=== PATIENT | female | born 1995 | race Caucasian/White ===

== ENCOUNTER → 2018-02-27 15:58 | Observation (INO) ==
[2018-02-27 13:19] LABS: Amphetamine Screen,Urine Negative ng/mL (Cutoff=1000); Barbiturate Screen,Urine Negative ng/mL (Cutoff=200); Benzodiazepines Screen,Urine Negative ng/mL (Cutoff=200); Cannabinoid Screen,Urine Negative ng/mL (Cutoff = 50); Cocaine Screen,Urine Negative ng/mL (Cutoff= 300); Opiate Screen,Urine Negative ng/mL (Cutoff=300); Phencyclidine Screen,Urine Negative ng/mL (Cutoff=25)
--- NOTE | 2018-02-27 15:50 | Discharge Summary ---
Date of Encounter: 02/27/18 Time of Encounter: 15:47 - Discharge Diagnosis (1) 37 weeks gestation of Priority: Primary Status: Acute Comments: Follow up with Dr. Parker by Friday. Labor parameters given Discharge home (2) NST (non-stress test) reactive on surveillance Priority: Secondary Status: Acute - Discharge Medications Home Medications: Ferrous Sulfate [Iron Supplement] 325 mg PO DAILY 10/26/15 [History] Multivitamin [Flintstones] 1 tab PO DAILY 02/27/18 [History] Allergies/Adverse Reactions: 3 Allergy/AdvReac Type Severity Reaction Status Date / Time No Known Allergies Allergy Verified 02/27/18 12:34 Data Procedures and tests throughout hospitalization: Laboratory Tests 02/27/18 12:28 Urine Opiates Screen Negative Ur Barbiturates Screen Negative Ur Phencyclidine Scrn Negative Ur Amphetamines Screen Negative U Benzodiazepines Scrn Negative Urine Cocaine Screen Negative U Marijuana (THC) Screen Negative Ur Drug Screen Interp See Below Labs on day of discharge: Labs from last 24 hours 02/27/18 12:28 Urine Opiates Screen Negative Ur Barbiturates Screen Negative Ur Phencyclidine Scrn Negative Ur Amphetamines Screen Negative U Benzodiazepines Scrn Negative Urine Cocaine Screen Negative U Marijuana (THC) Screen Negative Ur Drug Screen Interp See Below Date of admission: 02/27/18 12:10 Primary care physician: Isaak Cedillo Discharging clinician: Karen Mack Anticipated date of discharge: 02/27/18 - Patient Status Disposition: Home, Self-Care Condition: Good Functional capacity at discharge: independent ambulation Overall status at discharge: patient is progressing back to baseline - Discharge Instructions Follow Up With: Isaak Cedillo MD [Primary Care Provider] - Ronni Parker MD [Partnered Physician] - - Diet and Activity Activity: increase activity as tolerated Diet: regular diet 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 Michael was sent from Dr. Parker's office for NST with many variables. She endorses good fm and denies lof, vb, ctx. Extended monitoring is reassuring and strip was reviewed with Dr. Doran. Instructed patient to follow up with Dr. Parker early next week. Time Attestation: Total time spent providing and/or coordinating discharge services: Time Spent: Less than 30 minutes Exam - Constitutional General appearance IM: A&O X 3, morbidly obese, pleasant, no acute distress, answers questions appropriately - Respiratory Respiratory exam: Present: CTAB - Cardiovascular Cardiovascular exam IM: Present: RRR, +S1, +S2 - GI/Abdominal GI/Abdominal exam IM: normal bowel sounds, no peritoneal signs - Rectal Rectal exam: deferred - Uterine Tone: Firm - Extremities Exam Extremities exam IM: Present: normal capillary refill, normal inspection, radial pulses palpable and symmetrical - Neurological Exam Neurological exam: alert, CN II-XII intact, normal gait, oriented X3, reflexes normal, no focal deficits, strengths equal and symetr throughout - VTE Reasons for not Prescribing Prophylaxis: Treatment not Indicated - Low risk for VTE
== END | disposition home or self-care (01) ==
LOC: 1NENULAB
PROVIDERS: ADMIT Advanced Practice Midwife; ATTEND Advanced Practice Midwife

== ENCOUNTER 2018-03-13 06:13 | Inpatient (IN) ==
[2018-03-13] MEDS ORDERED: Naloxone 0.4 MG/ML INJ IVP PRN (06:18)
[2018-03-13] MEDS ORDERED: Famotidine 20 MG/2 ML VIAL IVP PRN (06:18)
[2018-03-13] MEDS ORDERED: Metoclopramide 10 MG/2 ML VIAL IVP PRN ×2 (06:18→09:46)
[2018-03-13] MEDS ORDERED: Ringers Solution, Lactated 1,000 ML IVC SCH ×2 (06:30→12:30)
[2018-03-13] MEDS ORDERED: CeFAZolin Syr 2,000MG/20 ML 2,000 MG/20 ML SYRINGE IVPB ONE (07:00)
[2018-03-13] MEDS ORDERED: Oxytocin 20 units/ LR 1000 mL 20 UNIT/1,000 ML BAG IVC ONE (07:00)
[2018-03-13] MEDS ORDERED: Ringers Solution, Lactated 1,000 ML IVC ONE (07:00)
[2018-03-13] MEDS ORDERED: Oxytocin 20 units/ LR 1000 mL 20 UNIT/1,000 ML BAG IVC SCH ×3 (07:00→12:30)
[2018-03-13 07:10] LABS: Basophils % 0.2 %; Eosinophils # 0.1 K/mcL (0.0-0.6); Hematocrit 34.4 % (35.3-44.9); Hemoglobin 11.3 g/dL (11.5-15.4); Immature Granulocytes % 0.8 % (0-4); Immature Platelets 7.3 % (1.1-6.1); Lymphocytes # 2.5 K/mcL (0.6-4.6); Lymphocytes % 27.3 %; Mean Corpuscular HGB Conc 32.8 g/dL (31.6-35.5); Mean Corpuscular Hemoglobin 27.7 pg (28.0-33.3); Mean Corpuscular Volume 84.3 fL (83.0-100.0); Mean Platelet Volume 11.2 fL (9.4-12.4); Monocytes # 0.7 K/mcL (0.0-1.3); Monocytes % 8.1 %; Neutrophils # 5.7 K/mcL (1.6-8.9); Platelet Count 170 K/mcL (140-400); Red Blood Count 4.08 M/mcL (3.82-4.97); Red Cell Distribution Width 13.6 % (11.5-14.5); Segmented Neutrophils % 62.6 %
[2018-03-13 07:23] LABS: Amphetamine Screen,Urine Negative ng/mL (Cutoff=1000); Barbiturate Screen,Urine Negative ng/mL (Cutoff=200); Benzodiazepines Screen,Urine Negative ng/mL (Cutoff=200); Cannabinoid Screen,Urine Negative ng/mL (Cutoff = 50); Cocaine Screen,Urine Negative ng/mL (Cutoff= 300); Opiate Screen,Urine Negative ng/mL (Cutoff=300); Phencyclidine Screen,Urine Negative ng/mL (Cutoff=25)
--- NOTE | 2018-03-13 07:24 | Anesthesia Evaluation PreOp ---
Date of Encounter: 03/13/18 Time of Encounter: 07:30 - Past History Planned Operation: Repeat Cardiac History: Denies any Significant Hx Pulmonary History: Denies Any Significant HX PLANNING OFFICIAL History: Denies Any Significant HX Other Medical History: Diabetes Type II (Gestational), Other (Obese) Anesthesia History: No Prior Anesthetic Complications : Yes (39 weeks) Alcohol Use: none Drug use: none Medications and Allergies Multivitamin [Flintstones] 1 tab PO DAILY 02/27/18 [History] 3 Allergy/AdvReac Type Severity Reaction Status Date / Time No Known Allergies Allergy Verified 02/27/18 12:34 - Meds/Allergy Pre-op Review Medications Reviewed: Yes Allergies Reviewed: Yes Beta Blockers on Current Med List: No Anesthesia Results - Labs 03/13/18 06:42 Laboratory Tests 03/03/16 03/13/18 21:54 06:42 Hgb 11.3 L Hct 34.4 L Plt Count 170 Sodium 138 Potassium 3.7 BUN 7 Creatinine 0.73 Anesthesia Exam O2 Sat Height 1.68 m Weight 113.852 kg Height: 5'6 Weight: 251lbs NPO (# of Hours): MN Pain Scale: 0 - HEENT Pupil (Motor): Pupils equal, EOMI Mallampati: II Teeth: Normal Oral Opening: Greater than 3 - PLANNING OFFICIAL LOC: Oriented PLANNING OFFICIAL Motor: Normal RUE, Normal LUE, Normal RLE, Normal LLE, Normal Face PLANNING OFFICIAL Sensory: Normal: RUE, LUE, RLE, LLE, Face - Cardiac Rhythm: Regular Murmur: None JVD: No Carotid Bruit: No - Pulmonary Breath Sounds: bilateral Clear Respiratory Effort: Symmetrical Anesthesia Assess/Plan ASA Score: 3 (Obese DM Gestational) Modified Jojo Scale for Level of Consciousness: Cooperative, oriented, and tranquil Anesthetic Plan: Regional Monitoring Plan: Standard Monitors Recovery Plan: PACU (Discussed SAB, possible GA, agrees to proceed)
[2018-03-13] MEDS ORDERED: Ringers Solution, Lactated 1,000 ML ONE ×2 (07:25→08:21)
[2018-03-13] MEDS ORDERED: *HR* Oxytocin 10 UNIT/ML VIAL IM ONE (07:25)
[2018-03-13] MEDS ORDERED: *HR* Morphine Sulfate/PF 10 MG/10 ML AMPUL ONE (07:26)
[2018-03-13] MEDS ORDERED: EPHEDrine 50 MG/ML VIAL ONE (07:26)
[2018-03-13] MEDS ORDERED: *HR* FentaNYL (PF) 100 MCG/2 ML VIAL ONE (07:26)
[2018-03-13] MEDS ORDERED: Lidocaine -MPF 2% 5 ML VIAL ONE (07:27)
--- NOTE | 2018-03-13 07:29 | OB/GYN History & Physical ---
Date of Encounter: 03/13/18 Time of Encounter: 07:27 Assessment and Plan (1) 39 weeks gestation of Current visit: Yes Status: Chronic (2) Gestational diabetes mellitus (GDM) affecting Current visit: Yes Status: Chronic (3) Delivered by section Current visit: No Status: Chronic History of Present Illness HPI: Ms. Michael is a 23 year old female Patient is a 23-year-old 2 para 1 white female at 39 weeks admitted for repeat section and tubal. She has had gestational diabetes which is been followed in our office with weekly nonstress test. She denies spontaneous rupture membranes, vaginal bleeding, and reports active fetus. Past Med Surg Social Fam HX - Past Medical History Medical history: no medical history Psychiatric history: anxiety, depression - Past Surgical History Surgical History: Additional surgical history: tonsilectomy - Social History Smoking Status: Former smoker Smokeless Tobacco Status: No Alcohol use: none Drug use: none - Family History Mother Adopted: Violet: Jillian Sow Family Member Ethnicity: Non- Living Status: Age at : 47 Cause of : colon cancer Hx Family Cardiac Disorders: Yes (hypertension) Hx Family Respiratory Disorders: No Hx Family Cancer: Yes (colon cancer) Hx Family GI Disorders: Yes (unsure) Hx Family Genitourinary Disorders: No Hx Family Endocrine Disorder: Yes (diabetes type II) Hx Family Musculoskeletal Disorders: No Hx Family Neuromuscular Disorders: No Hx Family Neurologic Disorders: No Hx Family HEENT Disorders: No Hx Family Autoimmune Disorders: No Hx Family Reproductive Disorders: No Hx Family Psychosocial Disorders: No Hx Family Medical Disorders: Yes (depression, anxiety) Obstetrical History - Pregnancies : 2 Para: 1 Medications and Allergies Multivitamin [Flintstones] 1 tab PO DAILY 02/27/18 [History] 3 Allergy/AdvReac Type Severity Reaction Status Date / Time No Known Allergies Allergy Verified 02/27/18 12:34 Review of System OB All systems PM: reviewed and no additional remarkable complaints except as stated - Genitourinary Genitourinary: amenorrhea - Menstruation Menstruation: amenorrhea Exam - Constitutional Constitutional: well developed, well nourished, no acute distress, obese - HEENT HEENT: Normocephaly - Neck Neck exam: full ROM - Lungs Respiratory exam: CTAB - Cardiovascular Cardiovascular exam: RRR - Abdomen Abdomen: Present: gravid, non tender - Extremities Extremities exam: full ROM Deep Tendon Reflex Grade: 2+ Normal - Uterus Uterus exam: Present: enlarged Results Result Diagrams: 03/13/18 06:42 Abnormal lab results Hgb 11.3 g/dL (11.5-15.4) L 03/13/18 06:42 Hct 34.4 % (35.3-44.9) L 03/13/18 06:42 MCH 27.7 pg (28.0-33.3) L 03/13/18 06:42 Immature Plt Fraction 7.3 % (1.1-6.1) H 03/13/18 06:42 All other labs normal. - VTE Reasons for not Prescribing Prophylaxis: Treatment not Indicated - Low risk for VTE - Attending Attestation hanane west md facog
[2018-03-13] MEDS ORDERED: CeFAZolin Premix DUPLEX 2,000 MG/50 ML BAG IVPB ONE (08:00)
[2018-03-13] MEDS ORDERED: Ondansetron 4 MG/2 ML VIAL IVP ONE (08:32)
[2018-03-13] MEDS ORDERED: Acetaminophen IV 1,000 MG/100 ML INFUS..BTL IVPB ONE (08:32)
[2018-03-13] MEDS ORDERED: *HR* Promethazine 25 MG/ML VIAL IVP PRN (08:32)
[2018-03-13] MEDS ORDERED: *HR* HYDROmorphone (PF) 1 MG/ML SYRINGE IVP PRN ×2 (08:32→13:08)
--- NOTE | 2018-03-13 09:35 | OB/GYN Procedure Note ---
Section - Preop diagnosis: desires repeat , desires sterilization Post-op diagnosis: same Procedure: repeat low transverse, bilateral tubal ligation Surgeon: Ronni Foley Blood Loss: 500 Was there an advertising sales assistant present: Yes Gemologist: Freda Richard Anesthesiologist: Edgardo Adame Anesthesia Type: Spinal section complications: none Disposition: PACU Specimens: Placenta, Right tube segment, Left tube segment - (s) A Infant Delivery Date: 03/13/18 Infant Delivery Time: : Presentation: vertex Position: ARABELLA Gender: Male Viability: Viable Pounds: 9 Ounces: 7 at 1 minute: 9 at 5 minutes: 9 Specimens collected: cord blood Placenta: complete extraction Cord: true knot - Narrative Narrative: Patient was taken to the operating room. After satisfactory spinal anesthesia was achieved patient placed in supine position Ann catheter inserted and prepped and draped in usual manner. After appropriate timeout, abdomen was entered through standard Maylard incision. The Teresa retractor was placed. The peritoneum overlying the lower uterine segment was incised in the U-shaped fashion. Uterine cavity was entered sharply extended laterally. Membranes ruptured yielding clear fluid consistent with polyhydramnios. The head was delivered, shoulders and torso delivered, umbilical cord double clamped and cut and the infant was handed to nursery staff for further evaluation. Placenta was removed and sent to pathology for analysis with a true knot noted. Uterus closed with 0 Monocryl in a single layer. Attention turned to fallopian tubes. Distal ends of fallopian tubes were resected and sent to pathology for analysis. Pedicles were ligated with a 2-0 chromic. After assurance hemostasis , uterus placed back within the abdominal cavity. Retractor was removed. Fascia closed with 0 PDS. Skin was closed with 3-0 Monocryl. Sterile dressing was applied. Patient did well was taken to recovery in satisfactory condition. Counts were correct.
[2018-03-13] MEDS ORDERED: Acetaminophen 325 MG TABLET PO PRN ×2 (09:46→12:16)
[2018-03-13] MEDS ORDERED: Simethicone 80 MG TAB.CHEW PO PRN ×2 (09:46→12:21)
[2018-03-13] MEDS ORDERED: Ibuprofen 600 MG TABLET PO PRN (09:46)
[2018-03-13] MEDS ORDERED: *HR* OxyCODONE/APAP 5/325 TABLET PO PRN ×2 (09:46→12:20)
[2018-03-13] MEDS ORDERED: Ondansetron 4 MG/2 ML VIAL IVP PRN ×2 (09:46→12:19)
[2018-03-13] MEDS ORDERED: Sennosides 8.6 MG TABLET PO PRN ×2 (09:46→12:16)
[2018-03-13] MEDS ORDERED: Rho Immune Globulin 1,500 UNIT SYRINGE IM ONE (09:46)
[2018-03-13] MEDS ORDERED: Rho Immune Globulin 1,500 UNIT SYRINGE IM PRN (12:16)
[2018-03-13] MEDS: *HR* Nalbuphine 10 MG/ML AMPUL IV PRN ×2 (13:15→21:31)
[2018-03-13] MEDS: Ibuprofen 600 MG TABLET PO PRN (22:12)
[2018-03-14] MEDS: *HR* Nalbuphine 10 MG/ML AMPUL IV PRN (00:44)
[2018-03-14 07:24] LABS: Hematocrit 35.5 % (35.3-44.9); Hemoglobin 11.5 g/dL (11.5-15.4); Mean Corpuscular HGB Conc 32.4 g/dL (31.6-35.5); Mean Corpuscular Hemoglobin 27.7 pg (28.0-33.3); Mean Corpuscular Volume 85.5 fL (83.0-100.0); Platelet Count 183 K/mcL (140-400); Red Blood Count 4.15 M/mcL (3.82-4.97); Red Cell Distribution Width 13.7 % (11.5-14.5)
[2018-03-14] MEDS: Prenatal Vit/FA 1 EACH TABLET PO SCH (07:51)
--- NOTE | 2018-03-14 08:29 | Anesthesia Evaluation Post Op ---
Date of Encounter: 03/14/18 Time of Encounter: 08:07 - Vital Signs Vital Signs: VSS - Lungs Lungs: Clear Ascult./Percussion - Airway Airway: Non-obstructed - Cardiovascular Regular Rate - Mental Status Mental Status: Alert & Oriented, Answers Appropriately - Pain Pain Scale: 1 Pain Scale used: Numeric (1 - 10) - Nausea Vomiting Nausea Vomiting: Not Present - Hydration Hydration: Tolerates oral liquids, Able to void - Discharge PostOp Status: Transfer Patient to floor
[2018-03-14] MEDS ORDERED: Prenatal Vit/FA 1 EACH TABLET PO SCH (09:00)
[2018-03-14] MEDS ORDERED: MULTIVITAMIN PO SCH (09:00)
--- NOTE | 2018-03-14 09:41 | OB/GYN Progress Note ---
Date of Encounter: 03/14/18 Time of Encounter: 09:39 - Assessment and Plan (1) Status post repeat low transverse section Current Visit: Yes Status: Acute Continue routine care Abdominal binder when necessary consult when necessary Discharge to home tomorrow Subjective - Subjective Principal diagnosis: s/p RLTCS with BTL Interval history: Feeling well. Out of bed without dizziness. Some abdominal discomfort-using abdominal binder. Cramping moderate - using ibuprofen and Percocet. Breast and bottlefeeding. Some nipple soreness. Voiding without difficulty. Passing flatus, no BM yet. Tolerating regular diet. Patient reports: appetite normal, voiding normally, pain well controlled, ambulating normally Olin: doing well, nursing well, bottle feeding Objective - Vital Signs Latest vital signs: Vital Signs Temp Pulse Resp BP Pulse Ox 03/14/18 08:52 98.0 F 78 14 119/71 97 03/14/18 03:53 98.1 F 72 16 114/66 98 03/14/18 00:37 98.0 F 73 16 120/66 97 03/13/18 20:04 97.7 F 87 16 112/68 97 03/13/18 14:26 98.1 F 83 16 106/64 03/13/18 13:30 98.5 F 90 16 111/64 94 03/13/18 12:35 97.2 F L 89 105/63 95 03/13/18 12:00 98.6 F 78 14 112/73 96 03/13/18 11:30 98.7 F 84 12 102/64 96 Intake and Output 03/13/18 03/14/18 03/14/18 23:59 07:59 15:59 Intake Total 860 / 860 1300 / 1300 200 / 200 Output Total 1999 800 / 800 550 / 550 Balance -1140 / -1140 500 / 500 -350 / -350 Intake: Oral 860 / 860 1300 / 1300 200 / 200 Output: Urine 0 / 0 800 / 800 550 / 550 Catheter 1999 Other: Weight 108.771 kg Patient Weight 03/14/18 23:59 Weight 108.771 kg - Exam Lungs: bilateral: normal Chest: Normal S1, Normal S2 Extremities: Present: normal Abdomen: Present: normal appearance, soft, tenderness Incision: Present: normal, dry, dressed Uterus: Present: normal, firm Fundal Height: 1 (Below and midline) - Labs Labs: Laboratory Results - last 24 hr 03/13/18 03/14/18 03/14/18 09:10 07:13 07:13 WBC 9.6 RBC 4.15 Hgb 11.5 Hct 35.5 MCV 85.5 MCH 27.7 L MCHC 32.4 RDW 13.7 Plt Count 183 MPV 11.0 Glucose 96 Baby's Blood Type A RH NEGATIVE Mother's Blood Type O RH NEGATIVE Rhogam Indicated NO
[2018-03-14] MEDS: Ibuprofen 600 MG TABLET PO PRN ×2 (13:28→22:26)
[2018-03-15] MEDS: Ibuprofen 600 MG TABLET PO PRN (06:41)
[2018-03-15] MEDS: Prenatal Vit/FA 1 EACH TABLET PO SCH (07:58)
[2018-03-15 08:10] VITALS: BP 118/78
--- NOTE | 2018-03-15 10:02 | Discharge Summary ---
Date of Encounter: 03/15/18 Time of Encounter: 10:02 - Discharge Diagnosis (1) Status post repeat low transverse section Priority: Primary Status: Acute Comments: Doing well, no post op problems identified. Will d/c home. - Discharge Medications Prescriptions: Ibuprofen [Motrin] 600 mg PO Q6HR PRN #40 tablet PRN Reason: Cramping Home Medications: Ibuprofen [Motrin] 600 mg PO Q6HR PRN #40 tablet 03/15/18 [Rx] Allergies/Adverse Reactions: 3 Allergy/AdvReac Type Severity Reaction Status Date / Time No Known Allergies Allergy Verified 02/27/18 12:34 Data Procedures and tests throughout hospitalization: Laboratory Tests 03/13/18 03/13/18 03/13/18 06:42 06:42 09:10 WBC 9.1 RBC 4.08 Hgb 11.3 L Hct 34.4 L MCV 84.3 MCH 27.7 L MCHC 32.8 RDW 13.6 Plt Count 170 MPV 11.2 Immature Gran % 0.8 Seg Neutrophils % 62.6 Lymphocytes % 27.3 Monocytes % 8.1 Eosinophils % 1.0 Basophils % 0.2 Neutrophils # 5.7 Lymphocytes # 2.5 Monocytes # 0.7 Eosinophils # 0.1 Basophils # 0.0 Immature Plt Fraction 7.3 H Glucose Urine Opiates Screen Negative Ur Barbiturates Screen Negative Ur Phencyclidine Scrn Negative Ur Amphetamines Screen Negative U Benzodiazepines Scrn Negative Urine Cocaine Screen Negative U Marijuana (THC) Screen Negative Ur Drug Screen Interp See Below Baby's Blood Type A RH NEGATIVE Mother's Blood Type O RH NEGATIVE Rhogam Indicated NO 03/14/18 03/14/18 07:13 07:13 WBC 9.6 RBC 4.15 Hgb 11.5 Hct 35.5 MCV 85.5 MCH 27.7 L MCHC 32.4 RDW 13.7 Plt Count 183 MPV 11.0 Immature Gran % Seg Neutrophils % Lymphocytes % Monocytes % Eosinophils % Basophils % Neutrophils # Lymphocytes # Monocytes # Eosinophils # Basophils # Immature Plt Fraction Glucose 96 Urine Opiates Screen Ur Barbiturates Screen Ur Phencyclidine Scrn Ur Amphetamines Screen U Benzodiazepines Scrn Urine Cocaine Screen U Marijuana (THC) Screen Ur Drug Screen Interp Baby's Blood Type Mother's Blood Type Rhogam Indicated - Impressions Doing well without c/o. Good pain control with Tylenol and Motrin. Regular diet without n/v. 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 Attestation: Total time spent providing and/or coordinating discharge services: Exam - Constitutional Vitals: Temp Pulse Resp BP Pulse Ox 98.4 F 84 14 118/78 99 03/15/18 08:09 03/15/18 08:09 03/15/18 08:09 03/15/18 08:09 03/15/18 08:09 General appearance IM: A&O X 3 - Respiratory Respiratory exam: Present: CTAB - Cardiovascular Cardiovascular exam IM: Present: RRR - GI/Abdominal GI/Abdominal exam IM: normal bowel sounds Incision: normal, dry, intact - VTE Reasons for not Prescribing Prophylaxis: Treatment not Indicated - Low risk for VTE Documentation of Mechanical Device: Intermittent pneumatic compression device
== END 2018-03-15 11:41 | disposition home or self-care (01) | DRG 540 ==
LOC: 1NENULAB 06:13 → 1NENUOBS 11:49
PROVIDERS: ADMIT Obstetrics & Gynecology; ATTEND Obstetrics & Gynecology